=== PATIENT | male | born 1990 | race African-American/Black ===

== ENCOUNTER 2017-02-26 02:27 | Emergency (ER) | payer MEDICAID ==
[~2017-02-26] VITALS: Ht 185.4 cm; Wt 79.4 kg
[~2017-02-26 02:27] MED LIST: ALBUAER3 IN
[2017-02-26 02:55] LABS: Basophils # (auto) 0.1 uL; Eosinophils # (auto) 0.3 uL; Hemoglobin 12.5 g/dL (13.5-17.5); Mean Corpuscular Hemoglobin 26.3 pg (28.0-32.0); Monocytes % (auto) 9.4 % (0.0-12.0); Nucleated Red Blood Cells % 0.1 %
[2017-02-26 02:57] LABS: Basophils % (auto) 1.1 % (0.0-2.0); Eosinophils % (auto) 2.5 % (0.0-7.0); Hematocrit 39.2 % (41.0-53.0); Lymphocytes % (auto) 18.8 % (10.0-50.0); Mean Corpuscular Hgb Conc. 31.9 g/dL (32.0-36.0); Mean Corpuscular Volume 82.4 fL (80.0-100.0); Mean Platelet Volume 7.1 fL (6.9-10.8); Neutrophils # (auto) 7.3 uL; Neutrophils % (auto) 68.2 % (37.0-80.0); Platelet Count (auto) 273 10^3/uL (140-450); Red Cell Distribution Width 14.8 % (11.8-14.3); White Blood Cell 10.7 10^3/uL (4.4-10.8)
[2017-02-26 03:10] LABS: Partial Thromboplastin Time 24.9 sec (22.64-33.71); Prothrombin Time 10.9 sec (9.37-12.3)
[2017-02-26 03:12] LABS: Albumin 3.7 g/dL (3.4-5.0); Anion Gap 7 (5-15); Aspartate Aminotransferase 23 U/L (15-37); BUN/Creatinine Ratio 10.9; Blood Urea Nitrogen 10 mg/dL (7-18); Calcium 8.8 mg/dL (8.5-10.1); Carbon Dioxide 32 mmol/L (21-32); Chloride 107 mmol/L (98-107); GFR African American 126 mL/min; GFR Non-African American 104 mL/min; Glucose 114 mg/dL (74-106); Potassium 3.9 mmol/L (3.5-5.1); Sodium 146 mmol/L (136-145)
[2017-02-26 03:17] LABS: Alkaline Phosphatase 116 U/L (45-117); Bilirubin, Total 0.3 mg/dL (0.2-1.0); Total Protein 6.8 g/dL (6.4-8.2)
[2017-02-26 04:03] LABS: Temperature: 21.7 C (20.0-25.0)
[2017-02-26 06:20] VITALS: BP 143/50
== END 2017-02-26 07:30 | disposition left against medical advice (07) ==
LOC: ER 02:36
DX: R07.9 Chest pain, unspecified (principal); R11.2 Nausea with vomiting, unspecified; M79.89 Other specified soft tissue disorders; Z53.21 Procedure and treatment not carried out due to patient leaving prior to being seen by health care provider
CPT/HCPCS: 36415; 71020; 80053; 80307; 83880; 84484; 85025; 85610; 85730; 93005

== ENCOUNTER 2017-02-26 09:25 | Emergency (ER) | payer MEDICAID ==
[~2017-02-26] VITALS: Ht 185.4 cm; Wt 77.1 kg
[2017-02-26 10:40] VITALS: BP 132/67
== END 2017-02-26 10:44 | disposition home or self-care (01) ==
LOC: ER 09:25
DX: R07.89 Other chest pain (principal); F15.10 Other stimulant abuse, uncomplicated; F17.210 Nicotine dependence, cigarettes, uncomplicated; J45.909 Unspecified asthma, uncomplicated; M79.89 Other specified soft tissue disorders; Z59.0 Homelessness

== ENCOUNTER 2017-03-20 06:53 | Emergency (ER) | payer MEDICAID ==
[~2017-03-20] VITALS: Ht 188 cm; Wt 79.4 kg
[2017-03-20 07:24] VITALS: BP 130/54
[2017-03-20] MEDS ORDERED: KETOROLAC TROMETH 60MG/2ML VIAL IM ONE (08:45)
== END 2017-03-20 09:08 | disposition home or self-care (01) ==
LOC: ER 06:53
DX: S80.02XA Contusion of left knee, initial encounter (principal); J45.909 Unspecified asthma, uncomplicated; F17.210 Nicotine dependence, cigarettes, uncomplicated; Z79.899 Other long term (current) drug therapy; Z90.49 Acquired absence of other specified parts of digestive tract; Z59.0 Homelessness; W17.89XA Other fall from one level to another, initial encounter; Y93.89 Activity, other specified; Y92.89 Other specified places as the place of occurrence of the external cause; Y99.8 Other external cause status
CPT/HCPCS: 73562; 96372; 99284; J1885

== ENCOUNTER 2017-11-03 14:29 | Emergency (ER) | payer MEDICAID ==
[~2017-11-03] VITALS: Ht 185.4 cm; Wt 93.0 kg
[2017-11-03 14:57] VITALS: BP 137/75
[2017-11-03] MEDS ORDERED: KETOROLAC TROMETH 60MG/2ML VIAL IM ONE (15:15)
== END 2017-11-03 15:59 | disposition home or self-care (01) ==
LOC: ER 14:29 → EDBD 14:29 → EDUNIT# 14:29 → ER 15:59
DX: S80.02XA Contusion of left knee, initial encounter (principal); F17.200 Nicotine dependence, unspecified, uncomplicated; J45.909 Unspecified asthma, uncomplicated; V00.138A Other skateboard accident, initial encounter; Y93.51 Activity, roller skating (inline) and skateboarding; Y92.89 Other specified places as the place of occurrence of the external cause; Y99.8 Other external cause status
CPT/HCPCS: 73030; 73562; 96372; 99284; J1885

== ENCOUNTER 2018-12-14 03:27 | Emergency (ER) | payer MEDICAID ==
[~2018-12-14] VITALS: Ht 188 cm; Wt 95.3 kg
[2018-12-14 03:41] VITALS: BP 132/56
== END 2018-12-14 08:02 | disposition left against medical advice (07) ==
LOC: ER 03:29
DX: M79.671 Pain in right foot (principal); Z53.21 Procedure and treatment not carried out due to patient leaving prior to being seen by health care provider

== ENCOUNTER 2019-06-06 14:20 | Emergency (ER) | payer MEDICAID ==
[~2019-06-06] VITALS: Ht 188 cm; Wt 95.3 kg
[2019-06-06] MEDS ORDERED: ACETAMINOPHEN 500 MG TAB PO ONE ×2 (17:15→18:46)
[2019-06-06] MEDS ORDERED: OSELTAMIVIR 75 MG CAP PO ONE (18:45)
[2019-06-06] MEDS ORDERED: IBUPROFEN 600 MG TAB PO ONE ×2 (18:45→18:51)
[2019-06-06 20:55] VITALS: BP 124/65
== END 2019-06-06 20:57 | disposition home or self-care (01) ==
LOC: ER 14:20
DX: J09.X2 Influenza due to identified novel influenza A virus with other respiratory manifestations (principal); F17.200 Nicotine dependence, unspecified, uncomplicated; F12.10 Cannabis abuse, uncomplicated; F15.10 Other stimulant abuse, uncomplicated; Z59.0 Homelessness
CPT/HCPCS: 71045; 87804

== ENCOUNTER 2019-06-07 13:20 | Emergency (ER) | payer MEDICAID ==
[~2019-06-07] VITALS: Ht 185.4 cm; Wt 95.3 kg
[2019-06-07] MEDS: IBUPROFEN 600 MG TAB PO ONE (14:02)
[2019-06-07 19:44] LABS: Basophils # (auto) 0 uL; Eosinophils # (auto) 0 uL; Hemoglobin 15.8 g/dL (13.5-17.5); Monocytes # (auto) 0.7 uL; Neutrophils # (auto) 7.8 uL; Platelet Count (auto) 185 10^3/uL (140-450)
[2019-06-07 19:46] LABS: Basophils % (auto) 0.2 % (0.0-2.0); Lymphocytes # (auto) 0.5 uL; Lymphocytes % (auto) 5.1 % (10.0-50.0); Mean Corpuscular Hemoglobin 26.5 pg (28.0-32.0); Mean Corpuscular Hgb Conc. 32.9 g/dL (32.0-36.0); Mean Corpuscular Volume 80.7 fL (80.0-100.0); Monocytes % (auto) 7.9 % (0.0-12.0); Neutrophils % (auto) 86.8 % (37.0-80.0); Nucleated Red Blood Cells % 0.1 %; Red Blood Cells 5.94 10^6/uL (4.5-5.90); Red Cell Distribution Width 14.2 % (11.8-14.3)
[2019-06-07 19:58] LABS: Albumin 4.1 g/dL (3.4-5.0); Calcium 9.2 mg/dL (8.5-10.1); Potassium 4.1 mmol/L (3.5-5.1)
[2019-06-07 20:01] LABS: BUN/Creatinine Ratio 11.6; Bilirubin, Total 0.3 mg/dL (0.2-1.0); Total Protein 8.2 g/dL (6.4-8.2)
[2019-06-07 20:53] VITALS: BP 128/71
[2019-06-07] MEDS: ACETAMINOPHEN 650 mg PER 20 mL UD PO ONE (21:04)
[2019-06-07] MEDS: guaiFENesin-DM 100/10mg/5ml SYR PO ONE (21:04)
== END 2019-06-07 22:25 | disposition home or self-care (01) ==
LOC: EDBD 13:20 → ER 13:20
DX: J09.X2 Influenza due to identified novel influenza A virus with other respiratory manifestations (principal); F17.200 Nicotine dependence, unspecified, uncomplicated; J45.909 Unspecified asthma, uncomplicated; Z59.0 Homelessness
CPT/HCPCS: 36415; 80053; 83605; 85025

== ENCOUNTER 2020-07-10 05:41 | Emergency (ER) | payer MEDICAID ==
[~2020-07-10] VITALS: Ht 185.4 cm; Wt 90.7 kg
[2020-07-10] MEDS ORDERED: KETAMINE HCL 10 ML ONE (06:55)
[2020-07-10] MEDS: KETAMINE 50mg/ML 10ml Vial (500mg/10ml) IV ONE ×2 (06:57→07:21)
[2020-07-10] MEDS ORDERED: NALOXONE HCL 1MG/ML 2ML SYRINGE ONE (08:28)
[2020-07-10] MEDS ORDERED: NALOXONE HCL 1MG/ML 2ML SYRINGE IV ONE (08:30)
[2020-07-10] MEDS ORDERED: AMMONIA 0.33 ML INHALANT IN ONE ×2 (08:40→08:45)
[2020-07-10 09:14] VITALS: BP 144/89
== END 2020-07-10 09:10 | disposition home or self-care (01) ==
LOC: ER 05:41
DX: S43.005A Unspecified dislocation of left shoulder joint, initial encounter (principal); J45.909 Unspecified asthma, uncomplicated; F17.200 Nicotine dependence, unspecified, uncomplicated; F12.10 Cannabis abuse, uncomplicated; F15.10 Other stimulant abuse, uncomplicated; X50.9XXA Other and unspecified overexertion or strenuous movements or postures, initial encounter; Y93.89 Activity, other specified; Y92.89 Other specified places as the place of occurrence of the external cause; Y99.8 Other external cause status
CPT/HCPCS: 23650; 73020; 73030; 82962; 93005; 96374; 99285; J2310; 96375

== ENCOUNTER 2021-05-15 09:08 | Emergency (ER) | payer MEDICAID ==
[~2021-05-15] VITALS: Ht 188 cm; Wt 95.3 kg
[2021-05-15 10:12] VITALS: BP 116/82
[2021-05-15] MEDS ORDERED: FLUORESCEIN SOD OPTH TEST STRIP EACHEYE ONE (10:45)
[2021-05-15] MEDS ORDERED: TETRACAINE HCL 0.5% OPTH(EYE) SOLN 4ML EACHEYE ONE (10:45)
[2021-05-15] MEDS ORDERED: POLYSOL15 OP (11:20)
== END 2021-05-15 11:23 | disposition home or self-care (01) ==
LOC: ER 09:08
DX: H10.33 Unspecified acute conjunctivitis, bilateral (principal); B96.89 Other specified bacterial agents as the cause of diseases classified elsewhere; J45.909 Unspecified asthma, uncomplicated; F17.210 Nicotine dependence, cigarettes, uncomplicated; Z79.899 Other long term (current) drug therapy

== ENCOUNTER 2021-06-03 14:39 | Emergency (ER) | payer MEDICAID ==
[~2021-06-03] VITALS: Ht 188 cm; Wt 99.8 kg
[~2021-06-03 14:39] MED LIST changes: +POLYSOL15 OP
[2021-06-03 14:56] VITALS: BP 128/74
== END 2021-06-04 03:27 | disposition left against medical advice (07) ==
LOC: ER 14:39
DX: H57.89 Other specified disorders of eye and adnexa (principal); Z53.21 Procedure and treatment not carried out due to patient leaving prior to being seen by health care provider

== ENCOUNTER 2021-07-12 07:19 | Emergency (ER) | payer MEDICAID ==
[~2021-07-12] VITALS: Ht 185.4 cm; Wt 95.3 kg
[2021-07-12 08:01] LABS: Basophils # (auto) 0.1 10 ^3/uL (0-0.2); Eosinophils # (auto) 0.1 10 ^3/uL (0-0.8); Eosinophils % (auto) 0.8 % (0.0-7.0); Lymphocytes % (auto) 13.1 % (10.0-50.0); Mean Corpuscular Volume 79.7 fL (80.0-100.0); Red Cell Distribution Width 13.9 % (11.8-14.3)
[2021-07-12 08:02] LABS: Basophils % (auto) 0.5 % (0.0-2.0); Hemoglobin 12.3 g/dL (13.5-17.5); Lymphocytes # (auto) 1.9 10 ^3/uL (0.4-5.4); Mean Corpuscular Hemoglobin 25.2 pg (28.0-32.0); Mean Corpuscular Hgb Conc. 31.6 g/dL (32.0-36.0); Monocytes # (auto) 0.9 10 ^3/uL (0-1.3); Monocytes % (auto) 6.5 % (0.0-12.0); Neutrophils # (auto) 11.2 10 ^3/uL (1.6-8.6); Neutrophils % (auto) 79.1 % (37.0-80.0); Red Blood Cells 4.89 10^6/uL (4.5-5.90); White Blood Cell 14.2 10^3/uL (4.4-10.8)
[2021-07-12 08:13] LABS: Albumin 2.8 g/dL (3.4-5.0); Calcium 8.9 mg/dL (8.5-10.1)
[2021-07-12 08:16] LABS: Bilirubin, Total 0.4 mg/dL (0.2-1.0); Total Protein 7.8 g/dL (6.4-8.2)
[2021-07-12 08:18] LABS: INR 1.1 (0.9-1.15); Partial Thromboplastin Time 25.6 sec (23.6-33.0)
[2021-07-12] MEDS ORDERED: IOHEXOL 300 MG/ML 100ML BOTTLE IJ ONE (08:53)
[2021-07-12] MEDS ORDERED: CLIN300C8 PO (11:00)
[2021-07-12] MEDS ORDERED: CEPH-509 PO (11:00)
[2021-07-12 11:05] VITALS: BP 131/65
== END 2021-07-12 11:19 | disposition home or self-care (01) ==
LOC: ER 07:19
DX: R59.1 Generalized enlarged lymph nodes (principal); D72.829 Elevated white blood cell count, unspecified; E44.0 Moderate protein-calorie malnutrition; J45.909 Unspecified asthma, uncomplicated; F17.210 Nicotine dependence, cigarettes, uncomplicated; F12.10 Cannabis abuse, uncomplicated; Z68.27 Body mass index [BMI] 27.0-27.9, adult
CPT/HCPCS: 36415; 70491; 71045; 80053; 85025; 85610; 85730; 99285; Q9967

== ENCOUNTER 2022-02-24 11:13 | Emergency (ER) | payer MEDICAID ==
[~2022-02-24] VITALS: Ht 185.4 cm; Wt 100.0 kg
[~2022-02-24 11:13] MED LIST changes: +CEPH-509 PO; +CLIN300C8 PO
[2022-02-24 11:47] VITALS: BP 130/56
== END 2022-02-24 15:24 | disposition left against medical advice (07) ==
LOC: ER 11:13
DX: Z48.02 Encounter for removal of sutures (principal); Z53.21 Procedure and treatment not carried out due to patient leaving prior to being seen by health care provider

== ENCOUNTER → 2022-02-26 | Emergency (ER) | payer MEDICAID | END | disposition left against medical advice (07) | LOC: ER 04:47 | DX: Z00.00 Encounter for general adult medical examination without abnormal findings (principal); Z53.21 Procedure and treatment not carried out due to patient leaving prior to being seen by health care provider ==

== ENCOUNTER 2023-07-09 07:57 | Emergency (ER) | payer MEDICAID ==
[~2023-07-09] VITALS: Ht 185.4 cm; Wt 105.2 kg
[~2023-07-09 07:57] MED LIST changes: +CLIN300C70 PO; -CLIN300C8 PO; +CYCL-614 PO; +IBUP-1456 PO; -POLYSOL15 OP; +POLYSOL28 OP
[2023-07-09 08:28] VITALS: BP 94/50; PULSE 52; RESP 16; TEMP 97.9; O2SAT 100
[2023-07-09 09:05] LABS: Amphetamine Screen, Urine Neg (NEGATIVE); Barbiturate Scree,Urine Neg (NEGATIVE); Benzodiazephine Screen, Urine Neg (NEGATIVE); Cannabinoid Screen, Urine Neg (NEGATIVE); Cocaine Screen, Urine Neg (NEGATIVE); Opiate Scree,Urine Neg (NEGATIVE); Phencyclidine Screen, Urine Neg (NEGATIVE)
== END 2023-07-09 08:48 | disposition home or self-care (01) ==
LOC: ER 07:57
DX: Z02.89 Encounter for other administrative examinations (principal); J45.909 Unspecified asthma, uncomplicated; F17.210 Nicotine dependence, cigarettes, uncomplicated; Z90.49 Acquired absence of other specified parts of digestive tract; Z79.1 Long term (current) use of non-steroidal anti-inflammatories (NSAID); Z79.2 Long term (current) use of antibiotics; Z79.899 Other long term (current) drug therapy
CPT/HCPCS: 80307

== ENCOUNTER 2023-12-14 07:07 | Emergency (ER) | payer MEDICAID ==
[~2023-12-14] VITALS: Ht 185.4 cm; Wt 100.0 kg
[~2023-12-14 07:07] MED LIST changes: +CLIN1CAP70 PO; -CLIN300C70 PO
[2023-12-14 07:35] VITALS: PULSE 56; RESP 10; O2SAT 98
[2023-12-14] MEDS: MORPHINE SULFATE 4 MG/ML SYR/VIAL IV ONE (07:59)
[2023-12-14] MEDS: ONDANSETRON HCL 4 MG/2 ML VIAL IV ONE (08:00)
[2023-12-14] MEDS: SODIUM CHLORIDE 0.9% 1,000 ML IVB ONE (08:15)
[2023-12-14 08:33] LABS: Basophils # (auto) 0.1 10 ^3/uL (0-0.2); Basophils % (auto) 0.6 % (0.0-2.0); Eosinophils # (auto) 0.2 10 ^3/uL (0-0.8); Eosinophils % (auto) 1.8 % (0.0-7.0); Hematocrit 38.9 % (41.0-53.0); Hemoglobin 12.6 g/dL (13.5-17.5); Lymphocytes # (auto) 1.5 10 ^3/uL (0.4-5.4); Lymphocytes % (auto) 14.7 % (10.0-50.0); Mean Corpuscular Hemoglobin 26.1 pg (28.0-32.0); Mean Corpuscular Hgb Conc. 32.3 g/dL (32.0-36.0); Mean Corpuscular Volume 80.8 fL (80.0-100.0); Monocytes # (auto) 0.9 10 ^3/uL (0-1.3); Monocytes % (auto) 8.6 % (0.0-12.0); Neutrophils # (auto) 7.4 10 ^3/uL (1.6-8.6); Neutrophils % (auto) 74.3 % (37.0-80.0); Nucleated Red Blood Cells % 0.2 %; Red Blood Cells 4.81 10^6/uL (4.5-5.90); White Blood Cell 9.9 10^3/uL (4.4-10.8)
[2023-12-14 08:51] LABS: INR 1.02 (0.9-1.15); Partial Thromboplastin Time 24.4 SEC (24.5-34.5); Prothrombin Time 10.8 sec (9.3-11.8)
[2023-12-14 09:15] LABS: Alanine Aminotransferase 24 U/L (7-40); Alkaline Phosphatase 91 U/L (46-116); Anion Gap 4 (5-15); Aspartate Aminotransferase 19 U/L (13-40); Bilirubin, Total 0.4 mg/dL (0.2-1.0); Calcium 9.4 mg/dL (8.7-10.4); Carbon Dioxide 29 mmol/L (20-30); Chloride 104 mmol/L (98-107); Creatine Kinase IFCC 169 U/L (46-171); Glucose 111 mg/dL (74-106); Potassium 4.2 mmol/L (3.5-5.1); Sodium 137 mmol/L (136-145); Total Protein 6.5 g/dL (5.7-8.2)
[2023-12-14 09:33] LABS: BUN/Creatinine Ratio 5.8 (10.0-20.0); Blood Urea Nitrogen < 5 mg/dL (9-23)
[2023-12-14 09:55] LABS: Urine Bacteria None Seen /hpf (None Seen)
[2023-12-14 10:33] LABS: Urine Blood Negative /uL (Negative); Urine Clarity Clear (Clear); Urine Color Light-Yellow (Yellow); Urine Protein, UAD Negative (Negative); Urine Specific Gravity 1.012 (1.001-1.035); Urine Urobilinogen Normal (Negative); Urine WBC <1 /hpf (0 - 3)
[2023-12-14] MEDS ORDERED: CEPH250C PO (10:37)
[2023-12-14 10:40] VITALS: BP 141/69; PULSE 58; RESP 10; TEMP 97.8; O2SAT 96
== END 2023-12-14 10:50 | disposition home or self-care (01) ==
LOC: ER 07:07
DX: S80.12XA Contusion of left lower leg, initial encounter (principal); L03.116 Cellulitis of left lower limb; F17.210 Nicotine dependence, cigarettes, uncomplicated; J45.909 Unspecified asthma, uncomplicated; F15.90 Other stimulant use, unspecified, uncomplicated; Z98.890 Other specified postprocedural states; Z79.899 Other long term (current) drug therapy; W18.39XA Other fall on same level, initial encounter; Y93.89 Activity, other specified; Y92.89 Other specified places as the place of occurrence of the external cause; Y99.8 Other external cause status
CPT/HCPCS: 36415; 73590; 80053; 81001; 82550; 83880; 85025; 85610; 85730; 93971; 96361; 96374; 96375; 99285; J2270; J2405; J7030